=== PATIENT | female | born 1985 ===

== ENCOUNTER 2016-08-24 18:55 | Emergency (ER) | payer MEDICAID, OTHER ==
[2016-08-24] MEDS ORDERED: IBUPROFEN 600 MG TABLET ONE (19:33)
[2016-08-24] MEDS ORDERED: ACETAMINOPHEN 325 MG TABLET ONE (19:33)
[2016-08-24] MEDS ORDERED: HYDROCORTISONE ACETATE 25 MG PR PRN (20:02)
[2016-08-24] MEDS ORDERED: [UNRECOGNIZED DRUG - OTHER] PR ONE (20:15)
== END 2016-08-24 20:39 | disposition home or self-care (01) ==
LOC: ED 18:55
DX: K64.5 Perianal venous thrombosis (principal)
CPT/HCPCS: 99283 ×2; A9270 ×2